=== PATIENT | male | born 1975 | race Caucasian/White ===

== ENCOUNTER 2021-02-10 18:18 | Emergency (ER) | payer OTHER ==
[2021-02-10] MEDS ORDERED: AUGMENTIN 500-1 EACH PO (19:10)
== END 2021-02-10 19:41 | disposition home or self-care (01) ==
LOC: FER 18:18
DX: S61.451A Open bite of right hand, initial encounter (principal); I10 Essential (primary) hypertension; W54.0XXA Bitten by dog, initial encounter
CPT/HCPCS: 99283